=== PATIENT | female | born 1940 ===

== ENCOUNTER 2018-05-11 09:59 | Outpatient (CLI) | payer MEDICARE | END 2018-05-11 10:00 | disposition home or self-care (01) | LOC: C.VASC 09:59 ==

== ENCOUNTER 2018-05-23 15:02 | Observation (INO) | payer MEDICARE, OTHER ==
--- NOTE | 2018-05-23 15:38 | C.PDOC ---
History Of Present Illness Patient is a 78 year old female who presents to the ED after being referred from the correction for low hemoglobin, as per daughter in law. Patient has a pending fistula placement on 05/24/18 and her last hemodialysis is 05/21/18. As per family at bedside, patient is currently at baseline. Patient denies any dizziness, CP, SOB, or fever. HX PER DAUGHTER IN LAW REFERRED FROM [place] FOR LOW HGB. PENDING AV FISTULA PLACEMENT 05/24/18. LAST HD 05/21/18. PER FAMILY @ BEDSIDE, PT CURRENTLY @ BASELINE EXAM NAD HEENT NO PALLOR NARD GOOD TURGOR +R PERMACATH REMAINDER NEG Time Seen by Provider: 05/23/18 15:27 History Per: Patient, Family (daughter in law ) History/Exam Limitations: language barrier Current Symptoms Are (Timing): Still Present Recent travel outside of the [place]: No Additional History Per: Patient, Family Past Medical History Reviewed: Historical Data, Nursing Documentation, Vital Signs - Medical History PMH: No Chronic Diseases Surgical History: No Surg Hx Family History: States: No Known Family Hx Review Of Systems Constitutional: Negative for: Fever Cardiovascular: Negative for: Chest Pain Respiratory: Negative for: Shortness of Breath Neurological: Negative for: Dizziness Physical Exam - Physical Exam Appears: Non-toxic, No Acute Distress Skin: Normal Color, Warm, Dry, No Pale, Other (+R Permacath ) Head: Atraumatic, Normacephalic Eye(s): bilateral: Normal Inspection Ear(s): Bilateral: Normal Nose: Normal Oral Mucosa: Moist Throat: Normal Neck: Normal ROM, Supple Chest: Symmetrical, No Deformity Cardiovascular: Rhythm Regular, No Murmur Respiratory: Normal Breath Sounds, No Rales, No Rhonchi, No Wheezing, Other (NARD) Extremity: Normal ROM, Capillary Refill (good turgor ) Neurological/Psych: Oriented x3, Normal Speech, Normal Cognition ED Course And Treatment - Laboratory Results Result Diagrams: 05/23/18 16:26 05/23/18 16:26 - Radiology CXR: Interpreted by Me CXR Interpretation: Yes: No Acute Disease Progress Note: EKG, Bloodwork, CXR ordered and reviewed. Progress - Re-Evaluation Re-evaluation Note: 05/23/18 17:01 EXAM UNCH PRIOR D/W DR Anthony ALCANTARA WILL ADMIT 05/23/18 17:23 SURGERY RESIDENT NOTIFIED - Data Reviewed Data Reviewed: Lab, Diagnostic imaging, EKG, Old records Disposition Counseled Patient/Family Regarding: Studies Performed, Diagnosis - Disposition Disposition: HOSPITALIZED Disposition Time: 17:01 Condition: SERIOUS - POA Present On Arrival: None - Clinical Impression Clinical Impression: Anemia, ESRD (end stage renal disease) - Scribe Statement The provider has reviewed the documentation as recorded by the Dakota Akhtar All medical record entries made by the Dakota were at my direction and personally dictated by me. I have reviewed the chart and agree that the record accurately reflects my personal performance of the history, physical exam, medic al decision making, and the department course for this patient. I have also personally directed, reviewed, and agree with the discharge instructions and disposition.
--- NOTE | 2018-05-23 16:36 | RAD ---
HISTORY: MED CLEAR COMPARISON: None available. TECHNIQUE: Chest, one view. FINDINGS: Right IJ approach dialysis catheter extends to the cavoatrial junction. LUNGS: Hyperinflation may be seen in the setting of COPD. No focal consolidation. Please note that chest x-ray has limited sensitivity for the detection of pulmonary masses. PLEURA: Blunting of the costophrenic angles consistent likely related to small pleural effusions. No definite pneumothorax . CARDIOVASCULAR: Mild cardiomegaly. Atherosclerotic calcifications present. OSSEOUS STRUCTURES: Degenerative changes. VISUALIZED UPPER ABDOMEN: Unremarkable. OTHER FINDINGS: None. IMPRESSION: Hyperinflation may be seen in the setting of COPD. Probable tiny bilateral pleural effusions. Biapical pleural thickening. Mild cardiomegaly. Right IJ approach dialysis catheter.
[2018-05-23 16:40] LABS: BASO # 0.1 K/uL (0.0-0.2); EOS # 0.5 K/uL (0.0-0.7); LYMPH # 1.3 K/uL (1.0-4.3); MEAN CORPUSCULAR HEMOGLOBIN 30.4 pg (27.0-31.0); MEAN CORPUSCULAR HGB CONC 31.8 g/dL (33.0-37.0); MONO # 0.6 K/uL (0.0-0.8)
[2018-05-23 16:45] LABS: BASO % 1.5 % (0.0-2.0); EOS % 10.4 % (0.0-4.0); LYMPH % 26.3 % (20.0-40.0); MEAN CELL VOLUME 95.5 fL (81.0-99.0); MEAN PLATELET VOLUME 8.7 fL (7.2-11.7); MONO % 11.5 % (0.0-10.0); NEUT # 2.6 K/uL (1.8-7.0); NEUT % 50.3 % (50.0-75.0); NRBC % 0.4 % (0.0-2.0); RBC 2.36 Mil/uL (3.80-5.20); RED CELL DISTRIBUTION WIDTH 20.1 % (11.5-14.5); WHITE BLOOD COUNT 5.1 K/uL (4.8-10.8)
[2018-05-23 16:48] LABS: CALCIUM 9.5 mg/dl (8.6-10.4); HEMOGLOBIN 7.2 g/dL (11.0-16.0)
--- NOTE | 2018-05-23 18:55 | CP.PCM.CON ---
History of Present Illness - History of Present Illness History of Present Illness: Vascular Surgery Consult Note. Dr. Tran 78yo F with PMHx of HTN, CKD who was sent in from [place] due to anemia. Patient hx obtained from [id number] at bedside. Patient is A&O x2. Currently, patient denies any complaints. Denies any dizziness, no CP/SOB. No F/C. Patient was initially scheduled to have a AVF placed by Dr. Tran on 05/24/18, however, patient was sent in one day prior due abnormal labs. Currently on ASA and antonia vix. Hx of being on a NOAC, however, family is unsure when it was stopped. PMHx: HTN, CKD, CAD PSHx: R ORIF Family Hx: non-contributory Social Hx: Denies Tobacco use, Denies ETOH use, Denies illicit drugs. Lives in correction. NKDA Review of Systems - Review of Systems Systems not reviewed;Unavailable: Dementia, Altered Mental Status Past Patient History - Past Medical History & Family History Past Family History: Reviewed and not pertinent - Past Social History Smoking Status: Never Smoked Alcohol: None Drugs: Denies Home Situation {Lives}: Jail - CARDIAC Hx Cardiac Disorders: Yes Hx Hypertension: Yes - PULMONARY Hx Respiratory Disorders: No - NEUROLOGICAL Hx Neurological Disorder: Yes Hx Parkinson's Disease: Yes - HEENT Hx HEENT Problems: No - RENAL Hx Chronic Kidney Disease: Yes Hx Renal Failure: Yes - ENDOCRINE/METABOLIC Hx Endocrine Disorders: No - HEMATOLOGICAL/ONCOLOGICAL Hx Blood Disorders: Yes Hx Anemia: Yes - INTEGUMENTARY Hx Dermatological Problems: No - MUSCULOSKELETAL/RHEUMATOLOGICAL Hx Musculoskeletal Disorders: No - GASTROINTESTINAL Hx Gastrointestinal Disorders: Yes Hx Gastroesophageal Reflux: Yes - GENITOURINARY/GYNECOLOGICAL Hx Genitourinary Disorders: Yes Other/Comment: Incontinent - PSYCHIATRIC Hx Substance Use: No - SURGICAL HISTORY Hx Surgeries: No Hx Coronary Stent: Yes Meds Allergies/Adverse Reactions: Allergies Allergy/AdvReac Type Severity Reaction Status Date / Time No Known Allergies Allergy Verified 05/23/18 15:55 Physical Exam - Constitutional Appears: Non-toxic, No Acute Distress - Head Exam Head Exam: ATRAUMATIC, NORMAL INSPECTION, NORMOCEPHALIC - Eye Exam Eye Exam: EOMI, Normal appearance. absent: Scleral icterus - ENT Exam ENT Exam: Mucous Membranes Moist - Respiratory Exam Respiratory Exam: NORMAL BREATHING PATTERN. absent: Accessory Muscle Use, Respiratory Distress - Cardiovascular Exam Cardiovascular Exam: RRR. absent: JVD - GI/Abdominal Exam GI & Abdominal Exam: Soft. absent: Distended, Guarding, Rebound, Rigid, Tenderness - Extremities Exam Extremities exam: Positive for: normal inspection. Negative for: calf tenderness, pedal edema - Back Exam Back exam: NORMAL INSPECTION - Skin Skin Exam: Dry, Intact, Normal Color, Warm Results - Vital Signs Recent Vital Signs: Last Vital Signs Temp 98.1 F 05/23/18 15:41 Pulse 88 05/23/18 15:41 Resp 16 05/23/18 15:41 BP 154/54 H 05/23/18 15:41 Pulse Ox 98 05/23/18 15:41 - Labs Result Diagrams: 05/23/18 16:26 05/23/18 16:26 Labs: Laboratory Results - last 24 hr 05/23/18 05/23/18 05/23/18 16:26 16:26 16:26 WBC 5.1 RBC 2.36 L Hgb 7.2 L Hct 22.5 L MCV 95.5 MCH 30.4 MCHC 31.8 L RDW 20.1 H Plt Count 118 L MPV 8.7 Neut % (Auto) 50.3 Lymph % (Auto) 26.3 [place] % (Auto) 11.5 H Eos % (Auto) 10.4 H Baso % (Auto) 1.5 Neut # (Auto) 2.6 Lymph # (Auto) 1.3 [place] # (Auto) 0.6 Eos # (Auto) 0.5 Baso # (Auto) 0.1 Sodium 137 Potassium 4.5 Chloride 99 Carbon Dioxide 28 Anion Gap 14 BUN 19 H Creatinine 3.5 H Est GFR ( Amer) 15 Est GFR (Non-Af Amer) 13 Random Glucose 89 Calcium 9.5 Blood Type O POSITIVE Antibody Screen Negative Assessment & Plan - Assessment and Plan (Free Text) Assessment: 78yo F with CKD, here due anemia on labs. Vascular surgery consulted for AVF creation planning Plan: - Anemia noted. Transfuse prn - Will need cardiology risk stratification prior to proceeding to OR. - Will tentatively plan for OR tomorrow, 05/24/18 if patient is medically optimized - NPO past mn - f/u AM labs - Medical management as per Primary team Further recs as per Dr. Chelsea Connelly PGY2 surgery
[2018-05-24 05:17] LABS: BASO # 0.1 K/uL (0.0-0.2); BASO % 1.8 % (0.0-2.0); EOS # 0.6 K/uL (0.0-0.7); EOS % 9.2 % (0.0-4.0); HEMOGLOBIN 9.5 g/dL (11.0-16.0); LYMPH # 1.9 K/uL (1.0-4.3); MEAN CELL VOLUME 92.8 fL (81.0-99.0); MEAN CORPUSCULAR HGB CONC 33.4 g/dL (33.0-37.0); MEAN PLATELET VOLUME 7.7 fL (7.2-11.7); MONO # 0.7 K/uL (0.0-0.8); NEUT # 2.9 K/uL (1.8-7.0); NRBC % 0.3 % (0.0-2.0); RBC 3.06 Mil/uL (3.80-5.20); RED CELL DISTRIBUTION WIDTH 17.2 % (11.5-14.5); WHITE BLOOD COUNT 6.2 K/uL (4.8-10.8)
[2018-05-24 05:30] LABS: ALB/GLOB RATIO 0.9 (1.0-2.1); ALBUMIN 3.4 g/dL (3.5-5.0); CALCIUM 9.5 mg/dl (8.6-10.4)
[2018-05-24 06:53] LABS: INR 1.1; PROTHROMBIN TIME 11.6 SECONDS (9.7-12.2)
--- NOTE | 2018-05-24 07:47 | CP.PCM.PN ---
Subjective - Date & Time of Evaluation Date of Evaluation: 05/24/18 Time of Evaluation: 08:00 - Subjective Subjective: Surgery progress note for Dr. Tran Patient seen and examined at bedside. No overnight events reported. Patient states she feels fine, just some minor back pain. Patient denies chest pain, SOB, nausea, vomiting, abdominal pain. Objective - Vital Signs/Intake and Output Vital Signs (last 24 hours): Temp Pulse Resp BP Pulse Ox 97.6 F 91 H 16 159/64 H 98 05/24/18 06:27 05/24/18 07:26 05/24/18 07:26 05/24/18 07:26 05/24/18 07:26 - Labs Labs: 05/24/18 05:14 05/24/18 05:14 PT 11.6 SECONDS (9.7-12.2) 05/24/18 06:50 INR 1.1 05/24/18 06:50 APTT 31 SECONDS (21-34) 05/24/18 05:14 - Constitutional Appears: Non-toxic, No Acute Distress - Head Exam Head Exam: NORMAL INSPECTION - Eye Exam Eye Exam: Normal appearance - ENT Exam ENT Exam: Mucous Membranes Moist - Respiratory Exam Respiratory Exam: NORMAL BREATHING PATTERN - Cardiovascular Exam Additional comments: RR - GI/Abdominal Exam GI & Abdominal Exam: Soft - Neurological Exam Neurological Exam: Alert, Awake - Psychiatric Exam Psychiatric exam: Normal Affect, Normal Mood - Skin Skin Exam: Dry, Intact, Normal Color, Warm Assessment and Plan - Assessment and Plan (Free Text) Assessment: 78 F scheduled for AVF Plan: - hgb 9.5 s/p 1 PRBC, transfuse PRN - Will need cardiology risk stratification prior to proceeding to OR. - Will tentatively plan for OR tomorrow, 05/25/18 if patient is medically optimized - NPO after MN - Medical management as per Primary team Further recs as per Dr. Chelsea Vick, PGY1
[2018-05-24] MEDS: Multivitamin Vitamin B Complex (Nephro-Vite) Tab PO SCH (12:33)
--- NOTE | 2018-05-24 12:43 | CP.PCM.PN ---
Subjective - Date & Time of Evaluation Date of Evaluation: 05/24/18 Time of Evaluation: 12:41 - Subjective Subjective: PT AWAKE. NOT IN DISTRESS. HB 9.5 CRF Objective - Vital Signs/Intake and Output Vital Signs (last 24 hours): Temp Pulse Resp BP Pulse Ox 97.7 F 99 H 18 157/65 H 97 05/24/18 10:56 05/24/18 12:33 05/24/18 10:56 05/24/18 12:33 05/24/18 10:56 - Medications Medications: Current Medications Amlodipine Besylate (Norvasc) 10 mg PO DAILY [facility] Last Admin: 05/24/18 12:33 Dose: 10 mg Famotidine (Pepcid) 20 mg PO DAILY [facility] Ferrous Sulfate (Feosol) 325 mg PO DAILY [facility] Last Admin: 05/24/18 12:33 Dose: 325 mg Hydralazine HCl (Apresoline) 50 mg PO Q8 [facility] Metoprolol Tartrate (Lopressor) 50 mg PO BID [facility] Mirtazapine (Remeron) 15 mg PO HS [facility] Pantoprazole Sodium (Protonix Ec Tab) 40 mg PO DAILY [facility] Rosuvastatin Calcium (Crestor) 40 mg PO HS [facility] Vitamin B Complex/Vit C/Folic Acid (Nephro-Waldo) 1 tab PO DAILY [facility] Vitamin B Complex/Vit C/Folic Acid (Nephro-Waldo) 1 tab PO DAILY [facility] Last Admin: 05/24/18 12:33 Dose: 1 tab - Labs Labs: 05/24/18 05:14 05/24/18 05:14 PT 11.6 SECONDS (9.7-12.2) 05/24/18 06:50 INR 1.1 05/24/18 06:50 APTT 31 SECONDS (21-34) 05/24/18 05:14 - Constitutional Appears: No Acute Distress, Chronically Ill - Eye Exam Eye Exam: Normal appearance, PERRL - ENT Exam ENT Exam: Mucous Membranes Moist - Respiratory Exam Respiratory Exam: Clear to Ausculation Bilateral, NORMAL BREATHING PATTERN - Cardiovascular Exam Cardiovascular Exam: REGULAR RHYTHM, +S1, +S2 - GI/Abdominal Exam GI & Abdominal Exam: Soft, Normal Bowel Sounds - Extremities Exam Extremities Exam: Full ROM, Normal Capillary Refill, Normal Inspection. absent: Joint Swelling, Pedal Edema - Back Exam Back Exam: NORMAL INSPECTION - Neurological Exam Neurological Exam: Alert, Awake, CN II-XII Intact, Normal Gait, Oriented x3 Assessment and Plan - Assessment and Plan (Free Text) Assessment: MEDICALLY STABLE WIRH ANEMIA CRF. Plan: CARDIAC CLEARANCE AND FOR AVS.
--- NOTE | 2018-05-24 16:34 | CP.PCM.CON ---
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 Patient hx obtained from [id number] at bedside. Patient is A&O x2. Currently, patient denies any complaints. Denies any dizziness, no CP/SOB. No F/C. Patient was initially scheduled to have a AVF placed by Dr. Tran on 05/24/18, however, patient was sent in one day prior due abnormal labs. Currently on ASA and plavix. Hx of being on a NOAC, however, family is unsure when it was stopped. denies any shortness of breath chest pain dizziness headache fevers chills nausea vomiting diarrhea at this time. conversant, asking for O2 nasal cannula. Last HD wednesday, tts schedule.Pt w/ hemoglobin in the 6-7 range during hd labs, transfusion was advised. PMHx: HTN, esrd, CAD PSHx: R ORIF Family Hx: non-contributory Social Hx: Denies Tobacco use, Denies ETOH use, Denies illicit drugs. Lives in alf. NKDA Review of Systems - Review of Systems All systems: reviewed and no additional remarkable complaints except (as per HPI ) Past Patient History - Past Medical History & Family History Past Family History: Reviewed and not pertinent - Past Social History Smoking Status: Never Smoked Alcohol: None Drugs: Denies Home Situation {Lives}: [facility]sp - CARDIAC Hx Cardiac Disorders: Yes Hx Hypertension: Yes - PULMONARY Hx Respiratory Disorders: No - NEUROLOGICAL Hx Neurological Disorder: Yes Hx Parkinson's Disease: Yes - HEENT Hx HEENT Problems: No - RENAL Hx Chronic Kidney Disease: Yes Hx Renal Failure: Yes - ENDOCRINE/METABOLIC Hx Endocrine Disorders: No - HEMATOLOGICAL/ONCOLOGICAL Hx Blood Disorders: Yes Hx Anemia: Yes - INTEGUMENTARY Hx Dermatological Problems: No - MUSCULOSKELETAL/RHEUMATOLOGICAL Hx Musculoskeletal Disorders: No - GASTROINTESTINAL Hx Gastrointestinal Disorders: Yes Hx Gastroesophageal Reflux: Yes - GENITOURINARY/GYNECOLOGICAL Hx Genitourinary Disorders: Yes Other/Comment: Incontinent - PSYCHIATRIC Hx Substance Use: No - SURGICAL HISTORY Hx Surgeries: No Hx Coronary Stent: Yes Meds Allergies/Adverse Reactions: Allergies Allergy/AdvReac Type Severity Reaction Status Date / Time No Known Allergies Allergy Verified 05/23/18 15:55 - Medications Medications: Current Medications Amlodipine Besylate (Norvasc) 10 mg PO DAILY [facility] Last Admin: 05/24/18 12:33 Dose: 10 mg Famotidine (Pepcid) 20 mg PO DAILY [facility] Ferrous Sulfate (Feosol) 325 mg PO DAILY [facility] Last Admin: 05/24/18 12:33 Dose: 325 mg Hydralazine HCl (Apresoline) 50 mg PO Q8 [facility] Last Admin: 05/24/18 14:26 Dose: Not Given Metoprolol Tartrate (Lopressor) 50 mg PO BID [facility] Mirtazapine (Remeron) 15 mg PO HS [facility] Pantoprazole Sodium (Protonix Ec Tab) 40 mg PO DAILY [facility] Rosuvastatin Calcium (Crestor) 40 mg PO HS [facility] Vitamin B Complex/Vit C/Folic Acid (Nephro-Waldo) 1 tab PO DAILY [facility] Vitamin B Complex/Vit C/Folic Acid (Nephro-Waldo) 1 tab PO DAILY [facility] Last Admin: 05/24/18 12:33 Dose: 1 tab Physical Exam - Constitutional Appears: No Acute Distress, Cachectic, Chronically Ill - Head Exam Head Exam: NORMAL INSPECTION, NORMOCEPHALIC - Eye Exam Eye Exam: Normal appearance, PERRL - ENT Exam ENT Exam: Mucous Membranes Moist, Normal Exam - Neck Exam Neck exam: Positive for: Full Rom, Normal Inspection - Respiratory Exam Respiratory Exam: Clear to Auscultation Bilateral, NORMAL BREATHING PATTERN - Cardiovascular Exam Cardiovascular Exam: REGULAR RHYTHM, RRR - GI/Abdominal Exam GI & Abdominal Exam: Normal Bowel Sounds, Soft - Extremities Exam Extremities exam: Positive for: normal inspection - Neurological Exam Neurological exam: Alert, Oriented x3 - Psychiatric Exam Psychiatric exam: Normal Affect, Normal Mood - Skin Skin Exam: Dry, Intact Results - Vital Signs Recent Vital Signs: Last Vital Signs Temp 97.7 F 05/24/18 10:56 Pulse 100 H 05/24/18 14:26 Resp 18 05/24/18 10:56 BP 156/71 H 05/24/18 14:26 Pulse Ox 97 05/24/18 15:30 - Labs Result Diagrams: 05/24/18 05:14 05/24/18 05:14 Labs: Laboratory Results - last 24 hr 05/23/18 05/23/18 05/23/18 16:26 16:26 16:26 WBC 5.1 RBC 2.36 L Hgb 7.2 L Hct 22.5 L MCV 95.5 MCH 30.4 MCHC 31.8 L RDW 20.1 H Plt Count 118 L MPV 8.7 Neut % (Auto) 50.3 Lymph % (Auto) 26.3 [place] % (Auto) 11.5 H Eos % (Auto) 10.4 H Baso % (Auto) 1.5 Neut # (Auto) 2.6 Lymph # (Auto) 1.3 [place] # (Auto) 0.6 Eos # (Auto) 0.5 Baso # (Auto) 0.1 Differential Comment PT INR APTT Sodium 137 Potassium 4.5 Chloride 99 Carbon Dioxide 28 Anion Gap 14 BUN 19 H Creatinine 3.5 H Est GFR ( Amer) 15 Est GFR (Non-Af Amer) 13 Random Glucose 89 Calcium 9.5 Phosphorus Magnesium Total Bilirubin AST ALT Alkaline Phosphatase Total Protein Albumin Globulin Albumin/Globulin Ratio Blood Type O POSITIVE Antibody Screen Negative 05/24/18 05/24/18 05/24/18 05:14 05:14 05:14 WBC 6.2 RBC 3.06 L Hgb 9.5 L D Hct 28.4 L MCV 92.8 D MCH 31.0 MCHC 33.4 RDW 17.2 H Plt Count 89 L D MPV 7.7 Neut % (Auto) 46.0 L Lymph % (Auto) 31.0 [place] % (Auto) 12.0 H Eos % (Auto) 9.2 H Baso % (Auto) 1.8 Neut # (Auto) 2.9 Lymph # (Auto) 1.9 [place] # (Auto) 0.7 Eos # (Auto) 0.6 Baso # (Auto) 0.1 Differential Comment PT INR APTT 31 Sodium 136 Potassium 3.8 Chloride 101 Carbon Dioxide 27 Anion Gap 12 BUN 20 H Creatinine 4.2 H Est GFR ( Amer) 12 Est GFR (Non-Af Amer) 10 Random Glucose 79 Calcium 9.5 Phosphorus 2.8 Magnesium 2.2 Total Bilirubin 0.5 AST 38 H ALT 23 Alkaline Phosphatase 107 Total Protein 7.5 Albumin 3.4 L Globulin 4.0 H Albumin/Globulin Ratio 0.9 L Blood Type Antibody Screen 05/24/18 06:50 WBC RBC Hgb Hct MCV MCH MCHC RDW Plt Count MPV Neut % (Auto) Lymph % (Auto) [place] % (Auto) Eos % (Auto) Baso % (Auto) Neut # (Auto) Lymph # (Auto) [place] # (Auto) Eos # (Auto) Baso # (Auto) Differential Comment PT 11.6 INR 1.1 APTT Sodium Potassium Chloride Carbon Dioxide Anion Gap BUN Creatinine Est GFR ( Amer) Est GFR (Non-Af Amer) Random Glucose Calcium Phosphorus Magnesium Total Bilirubin AST ALT Alkaline Phosphatase Total Protein Albumin Globulin Albumin/Globulin Ratio Blood Type Antibody Screen Assessment & Plan (1) Anemia Status: Acute (2) ESRD (end stage renal disease) Status: Acute - Assessment and Plan (Free Text) Assessment: s/p blood transfusion hd today and tts vascular surgery for avf raul w/ hd
--- NOTE | 2018-05-24 18:52 | CP.PCM.CON ---
History of Present Illness - History of Present Illness History of Present Illness: History Of Present Illness Patient is a 78 year old female who presents to the ED after being referred from the longterm for low hemoglobin, as per daughter in law. Patient has a pending fistula placement on 05/24/18 and her last hemodialysis is 05/21/18. As per family at bedside, patient is currently at baseline. Patient denies any dizziness, CP, SOB, or fever. At the time of exam having dialysis. Denies any new complaints and she knows I am her Doctor. Past Patient History - Past Medical History & Family History Past Family History: Reviewed and not pertinent - Past Social History Smoking Status: Never Smoked Alcohol: None Drugs: Denies Home Situation {Lives}: Senior Living - CARDIAC Hx Cardiac Disorders: Yes Hx Hypertension: Yes - PULMONARY Hx Respiratory Disorders: No - NEUROLOGICAL Hx Neurological Disorder: Yes Hx Parkinson's Disease: Yes - HEENT Hx HEENT Problems: No - RENAL Hx Chronic Kidney Disease: Yes Hx Renal Failure: Yes - ENDOCRINE/METABOLIC Hx Endocrine Disorders: No - HEMATOLOGICAL/ONCOLOGICAL Hx Blood Disorders: Yes Hx Anemia: Yes - INTEGUMENTARY Hx Dermatological Problems: No - MUSCULOSKELETAL/RHEUMATOLOGICAL Hx Musculoskeletal Disorders: No - GASTROINTESTINAL Hx Gastrointestinal Disorders: Yes Hx Gastroesophageal Reflux: Yes - GENITOURINARY/GYNECOLOGICAL Hx Genitourinary Disorders: Yes Other/Comment: Incontinent - PSYCHIATRIC Hx Substance Use: No - SURGICAL HISTORY Hx Surgeries: No Hx Coronary Stent: Yes Meds Allergies/Adverse Reactions: Allergies Allergy/AdvReac Type Severity Reaction Status Date / Time No Known Allergies Allergy Verified 05/23/18 15:55 - Medications Medications: Current Medications Amlodipine Besylate (Norvasc) 10 mg PO DAILY [facility] Last Admin: 05/24/18 12:33 Dose: 10 mg Famotidine (Pepcid) 20 mg PO DAILY [facility] Ferrous Sulfate (Feosol) 325 mg PO DAILY [facility] Last Admin: 05/24/18 12:33 Dose: 325 mg Hydralazine HCl (Apresoline) 50 mg PO Q8 [facility] Last Admin: 05/24/18 14:26 Dose: Not Given Metoprolol Tartrate (Lopressor) 50 mg PO BID [facility] Mirtazapine (Remeron) 15 mg PO HS [facility] Pantoprazole Sodium (Protonix Ec Tab) 40 mg PO DAILY [facility] Rosuvastatin Calcium (Crestor) 40 mg PO HS [facility] Vitamin B Complex/Vit C/Folic Acid (Nephro-Waldo) 1 tab PO DAILY [facility] Vitamin B Complex/Vit C/Folic Acid (Nephro-Waldo) 1 tab PO DAILY [facility] Last Admin: 05/24/18 12:33 Dose: 1 tab Physical Exam - Head Exam Head Exam: NORMOCEPHALIC - Neck Exam Neck exam: Positive for: Normal Inspection - Respiratory Exam Respiratory Exam: NORMAL BREATHING PATTERN - Cardiovascular Exam Cardiovascular Exam: REGULAR RHYTHM - Extremities Exam Extremities exam: Positive for: normal inspection - Neurological Exam Neurological exam: Alert, Oriented x3 Results - Vital Signs Recent Vital Signs: Last Vital Signs Temp 97.5 F L 05/24/18 16:05 Pulse 99 H 05/24/18 17:31 Resp 16 05/24/18 17:31 BP 132/65 05/24/18 17:50 Pulse Ox 16 L 05/24/18 16:05 - Labs Result Diagrams: 05/24/18 05:14 05/24/18 05:14 Labs: Laboratory Results - last 24 hr 05/23/18 05/23/18 05/24/18 16:26 16:26 05:14 WBC 5.1 6.2 RBC 2.36 L 3.06 L Hgb 7.2 L 9.5 L D Hct 22.5 L 28.4 L MCV 95.5 92.8 D MCH 30.4 31.0 MCHC 31.8 L 33.4 RDW 20.1 H 17.2 H Plt Count 118 L 89 L D MPV 8.7 7.7 Neut % (Auto) 50.3 46.0 L Lymph % (Auto) 26.3 31.0 [place] % (Auto) 11.5 H 12.0 H Eos % (Auto) 10.4 H 9.2 H Baso % (Auto) 1.5 1.8 Neut # (Auto) 2.6 2.9 Lymph # (Auto) 1.3 1.9 [place] # (Auto) 0.6 0.7 Eos # (Auto) 0.5 0.6 Baso # (Auto) 0.1 0.1 Differential Comment PT INR APTT Sodium Potassium Chloride Carbon Dioxide Anion Gap BUN Creatinine Est GFR ( Amer) Est GFR (Non-Af Amer) Random Glucose Calcium Phosphorus Magnesium Total Bilirubin AST ALT Alkaline Phosphatase Total Protein Albumin Globulin Albumin/Globulin Ratio Blood Type O POSITIVE Antibody Screen Negative 05/24/18 05/24/18 05/24/18 05:14 05:14 06:50 WBC RBC Hgb Hct MCV MCH MCHC RDW Plt Count MPV Neut % (Auto) Lymph % (Auto) [place] % (Auto) Eos % (Auto) Baso % (Auto) Neut # (Auto) Lymph # (Auto) [place] # (Auto) Eos # (Auto) Baso # (Auto) Differential Comment PT 11.6 INR 1.1 APTT 31 Sodium 136 Potassium 3.8 Chloride 101 Carbon Dioxide 27 Anion Gap 12 BUN 20 H Creatinine 4.2 H Est GFR ( Amer) 12 Est GFR (Non-Af Amer) 10 Random Glucose 79 Calcium 9.5 Phosphorus 2.8 Magnesium 2.2 Total Bilirubin 0.5 AST 38 H ALT 23 Alkaline Phosphatase 107 Total Protein 7.5 Albumin 3.4 L Globulin 4.0 H Albumin/Globulin Ratio 0.9 L Blood Type Antibody Screen Assessment & Plan (1) CAD (coronary artery disease) Assessment and Plan: CAD is stable. No new episodes. May proceed with planned A-V fistula. Resume DAPT LIZETTE after procedure. Status: Acute (2) Anemia Status: Acute (3) ESRD (end stage renal disease) Assessment and Plan: Most likely secondary to ESRD, Keep H&H.12/17. Status: Acute
--- NOTE | 2018-05-24 20:29 | CARD ---
APPROVED REPORT Date of service: 05/23/2018 EKG Measurement Heart [id number] <Conclusion> Normal sinus rhythm Marked counterclockiwise rotation. Abnormal ECG
--- NOTE | 2018-05-24 21:06 | HP ---
HISTORY OF PRESENT ILLNESS: This is a 78-year-old [place] female, who was transferred from retirement because of anemia, hemoglobin of 7.2. The patient is supposed to go for AV shunt by Dr. Tran on 05/24/2018. No history of fever, chills. No other complaints offered. The patient is awake and oriented x2. No history of chest pain or shortness of breath. REVIEW OF SYSTEMS: CARDIOVASCULAR SYSTEM: Negative for chest pain. RESPIRATORY SYSTEM: Negative for shortness of breath and cough. GASTROINTESTINAL SYSTEM: Negative for nausea, vomiting, or abdominal pain. CENTRAL NERVOUS SYSTEM: No focal neurological complaints offered. ALLERGIES: NO KNOWN ALLERGY. PAST HISTORY: Hypertension, renal failure, coronary artery disease, arthritis and hyperthyroidism. FAMILY HISTORY: No known inherited disease. SOCIAL HISTORY: Nonsmoker, nonalcoholic. No IVDA. PHYSICAL EXAMINATION: GENERAL: This is a 78-year-old [place] female, awake and comfortable. VITAL SIGNS: Temperature 98.1, pulse 88, respirations 16, blood pressure 154/54 mmHg, and pulse ox is 98% at room air. HEENT: Normal. NECK: JVP flat. Carotid, no bruits. LUNGS: No rales. No wheezing. HEART: S1 and S2 are normal. No gallop. No murmur. ABDOMEN: Soft, nontender. No organomegaly. CENTRAL NERVOUS SYSTEM: No focal neurological deficits. No edema of the legs. LABORATORY DATA: On admission, lab work shows hemoglobin 7.2, and platelets 118,000. White cell count is 5.1. Patient's BUN is 19, creatinine is 3.5. The patient is undergoing dialysis presently. IMPRESSION: Severe anemia secondary to chronic renal failure, coronary artery disease, hypertension, arteriosclerotic heart disease. PLAN: The patient will be admitted to the floor. We will give 2 units of blood transfusion and consult Dr. Tran. Other workup as needed. Marisol Brooke MD
[2018-05-25 07:37] LABS: BASO # 0.1 K/uL (0.0-0.2); BASO % 1.7 % (0.0-2.0); EOS # 0.6 K/uL (0.0-0.7); EOS % 9.7 % (0.0-4.0); HEMOGLOBIN 9.3 g/dL (11.0-16.0); LYMPH # 1.6 K/uL (1.0-4.3); LYMPH % 26.6 % (20.0-40.0); MEAN CELL VOLUME 92.6 fL (81.0-99.0); MEAN CORPUSCULAR HEMOGLOBIN 31.2 pg (27.0-31.0); MEAN CORPUSCULAR HGB CONC 33.7 g/dL (33.0-37.0); MEAN PLATELET VOLUME 9.4 fL (7.2-11.7); MONO # 0.7 K/uL (0.0-0.8); NEUT # 2.9 K/uL (1.8-7.0); NRBC % 0.2 % (0.0-2.0); RBC 2.99 Mil/uL (3.80-5.20); RED CELL DISTRIBUTION WIDTH 17.3 % (11.5-14.5); WHITE BLOOD COUNT 5.8 K/uL (4.8-10.8)
[2018-05-25 07:42] LABS: INR 1.1
[2018-05-25 07:50] LABS: ALB/GLOB RATIO 0.8 (1.0-2.1); ALBUMIN 3.3 g/dL (3.5-5.0); CALCIUM 8.9 mg/dl (8.6-10.4)
--- NOTE | 2018-05-25 09:03 | CP.PCM.PN ---
Subjective - Date & Time of Evaluation Date of Evaluation: 05/25/18 Time of Evaluation: 09:00 - Subjective Subjective: for OR today for TRINY tolerating HD no distress no acute events cannot obtain ROS due to chronic dementia Objective - Vital Signs/Intake and Output Vital Signs (last 24 hours): Temp Pulse Resp BP Pulse Ox 98.0 F 88 20 147/69 95 05/25/18 00:00 05/25/18 00:00 05/25/18 00:00 05/25/18 00:00 05/25/18 00:00 - Medications Medications: Current Medications Amlodipine Besylate (Norvasc) 10 mg PO DAILY [facility] Last Admin: 05/24/18 12:33 Dose: 10 mg Famotidine (Pepcid) 20 mg PO DAILY [facility] Ferrous Sulfate (Feosol) 325 mg PO DAILY [facility] Last Admin: 05/24/18 12:33 Dose: 325 mg Hydralazine HCl (Apresoline) 50 mg PO Q8 [facility] Last Admin: 05/25/18 07:00 Dose: 50 mg Metoprolol Tartrate (Lopressor) 50 mg PO BID [facility] Last Admin: 05/24/18 21:06 Dose: 50 mg Mirtazapine (Remeron) 15 mg PO HS [facility] Last Admin: 05/24/18 21:06 Dose: 15 mg Pantoprazole Sodium (Protonix Ec Tab) 40 mg PO DAILY [facility] Rosuvastatin Calcium (Crestor) 40 mg PO HS [facility] Vitamin B Complex/Vit C/Folic Acid (Nephro-Waldo) 1 tab PO DAILY [facility] Vitamin B Complex/Vit C/Folic Acid (Nephro-Waldo) 1 tab PO DAILY [facility] Last Admin: 05/24/18 12:33 Dose: 1 tab - Labs Labs: 05/25/18 07:28 05/25/18 07:28 PT 12.0 SECONDS (9.7-12.2) 05/25/18 07:28 INR 1.1 05/25/18 07:28 APTT 33 SECONDS (21-34) 05/25/18 07:28 - Constitutional Appears: Confused, Chronically Ill - Head Exam Head Exam: ATRAUMATIC, NORMAL INSPECTION - Eye Exam Eye Exam: EOMI - ENT Exam ENT Exam: Mucous Membranes Moist - Neck Exam Neck Exam: Full ROM. absent: Lymphadenopathy - Respiratory Exam Respiratory Exam: Decreased Breath Sounds. absent: Rhonchi - Cardiovascular Exam Cardiovascular Exam: REGULAR RHYTHM. absent: Rubs - GI/Abdominal Exam GI & Abdominal Exam: Soft. absent: Tenderness - Extremities Exam Extremities Exam: absent: Pedal Edema - Back Exam Back Exam: absent: CVA tenderness (L), CVA tenderness (R) - Neurological Exam Neurological Exam: Awake - Psychiatric Exam Psychiatric exam: absent: Agitated Assessment and Plan - Assessment and Plan (Free Text) Assessment: ESRD, for TRINY NHR CAD, asx Anemia of chronic disease, epogen on HD, stable Hd in am
[2018-05-25] MEDS: Multivitamin Vitamin B Complex (Nephro-Vite) Tab PO SCH ×2 (11:13)
[2018-05-25] MEDS: Pantoprazole 40 mg EC Tab PO SCH (11:20)
[2018-05-25] MEDS ORDERED: ceFAZolin 1 gm in NS 1 GM/100 ML BAG IVPB ONE (11:37)
[2018-05-25] MEDS ORDERED: HEPARIN-NS 5,000 UNITS/500 ML 5,000 UNIT/500 ML BAG IV ONE (11:38)
--- NOTE | 2018-05-25 12:11 | CP.PCM.PN ---
Subjective - Date & Time of Evaluation Date of Evaluation: 05/25/18 Time of Evaluation: 12:09 - Subjective Subjective: PT MEDICALLY STABLE. FOR AVS TODAY. Objective - Vital Signs/Intake and Output Vital Signs (last 24 hours): Temp Pulse Resp BP Pulse Ox 98 F 83 17 146/63 95 05/25/18 11:17 05/25/18 11:17 05/25/18 11:17 05/25/18 11:17 05/25/18 11:17 - Medications Medications: Current Medications Amlodipine Besylate (Norvasc) 10 mg PO DAILY [facility] Last Admin: 05/25/18 11:13 Dose: Not Given Famotidine (Pepcid) 20 mg PO DAILY [facility] Last Admin: 05/25/18 11:20 Dose: Not Given Ferrous Sulfate (Feosol) 325 mg PO DAILY [facility] Last Admin: 05/25/18 11:13 Dose: Not Given Hydralazine HCl (Apresoline) 50 mg PO Q8 [facility] Last Admin: 05/25/18 07:00 Dose: 50 mg Metoprolol Tartrate (Lopressor) 50 mg PO BID [facility] Last Admin: 05/25/18 11:16 Dose: 50 mg Mirtazapine (Remeron) 15 mg PO HS [facility] Last Admin: 05/24/18 21:06 Dose: 15 mg Pantoprazole Sodium (Protonix Ec Tab) 40 mg PO DAILY [facility] Last Admin: 05/25/18 11:20 Dose: Not Given Rosuvastatin Calcium (Crestor) 40 mg PO [facility] Vitamin B Complex/Vit C/Folic Acid (Nephro-Waldo) 1 tab PO DAILY [facility] Last Admin: 05/25/18 11:13 Dose: Not Given Vitamin B Complex/Vit C/Folic Acid (Nephro-Waldo) 1 tab PO DAILY [facility] Last Admin: 05/25/18 11:13 Dose: Not Given - Labs Labs: 05/25/18 07:28 05/25/18 07:28 PT 12.0 SECONDS (9.7-12.2) 05/25/18 07:28 INR 1.1 05/25/18 07:28 APTT 33 SECONDS (21-34) 05/25/18 07:28 - Constitutional Appears: Chronically Ill - Eye Exam Eye Exam: Normal appearance, PERRL - ENT Exam ENT Exam: Mucous Membranes Moist - Respiratory Exam Respiratory Exam: Clear to Ausculation Bilateral, NORMAL BREATHING PATTERN - Cardiovascular Exam Cardiovascular Exam: REGULAR RHYTHM, +S1, +S2 - GI/Abdominal Exam GI & Abdominal Exam: Soft, Normal Bowel Sounds - Extremities Exam Extremities Exam: Full ROM, Normal Capillary Refill, Normal Inspection. absent: Joint Swelling, Pedal Edema - Back Exam Back Exam: NORMAL INSPECTION - Neurological Exam Neurological Exam: Alert, Awake, CN II-XII Intact, Normal Gait, Oriented x3 Assessment and Plan - Assessment and Plan (Free Text) Assessment: CRF. Plan: FOR OR TODAY.
[2018-05-25] MEDS ORDERED: Propofol 10 mg/ml Inj (20 ML) ONE (12:27)
[2018-05-25] MEDS ORDERED: Lidocaine Hydrochloride 5 ML INJ ONE (12:27)
[2018-05-25] MEDS ORDERED: Labetalol 5mg/ml (4ml) ONE (12:46)
[2018-05-25] MEDS ORDERED: ePHEDrine 50 mg/ml Inj ONE (12:49)
[2018-05-25] MEDS ORDERED: Phenylephrine 10 mg/ml Inj ONE (12:51)
[2018-05-25] MEDS ORDERED: Oxycodone/Acetaminophen 5/325 mg Tab PO PRN (14:21)
--- NOTE | 2018-05-25 14:23 | PCM.SURG1 ---
Surgeon's Initial Post Op Note - Surgeon's Notes Surgeon: Dr. Tran Furnace Combination Analyst: Maricel PGY2 Type of Anesthesia: General LMA Anesthesia Administered By: Dr. Blanco Pre-Operative Diagnosis: End Stage Renal Disease Operative Findings: See operative report Post-Operative Diagnosis: Same Operation Performed: Left Brachiobasilic Arteriovenous Fistula Creation Specimen/Specimens Removed: None Estimated Blood Loss: EBL {In ML}: 15 Blood Products Given: N/A Drains Used: No Drains Post-Op Condition: Good Date of Surgery/Procedure: 05/25/18 Time of Surgery/Procedure: 14:22
--- NOTE | 2018-05-25 14:26 | CP.PCM.PCO ---
Assessment & Plan - Assessment and Plan (Free Text) Assessment: 78yo F with ESRD on HD. S/p Left brachiobasilic Arteriovenous Fistula creation. POD 0 Plan: - Pain management - Cleared for discharge at the discretion of the primary care team - Follow up with Dr. Tran in office in 10 days. Call for appointment - Continue HD via Permacath for now Further recs as per Dr. Chelsea Connelly PGY2 surgery
[2018-05-25 14:34] VITALS: O2SAT 100
--- NOTE | 2018-05-26 01:10 | OP ---
PROCEDURE DATE: 05/25/2018 PREOPERATIVE DIAGNOSIS: Renal failure. POSTOPERATIVE DIAGNOSIS: Renal failure. PROCEDURE CARRIED OUT: Brachiobasilic fistula, left elbow. SURGEON: Quoc Tran Jr., MD IT SUPPORT TECHNICIAN: Vishnu Connelly DO ANESTHESIOLOGIST: Dr. Blanco INDICATIONS: The patient is a 78-year-old woman with renal insufficiency, presently dialyzes with the use of a catheter. OPERATIVE FINDINGS: There were no surface veins available. . After evaluation of her basilic vein in the upper arm, we created a basilic vein fistula between the side of the brachial artery at the elbow and the adjacent to the basilic vein. At the end of the procedure, we had a good flow to the fistula, and we had a palpable pulse at the wrist. DESCRIPTION OF PROCEDURE: The patient was given general anesthesia and intravenous antibiotics. The veins were marked with ultrasound. After marked, they were dissected free and mobilized. The end-to-side anastomosis was carried out using heparin anticoagulation, loupe magnification and plastic loupe vessel control. The anastomosis was carried out in a spatulated fashion. Heparin was not reversed. The wound was closed with layered closure and nylon sutures on the skin. Blood loss was less than 20 mL. Operation carried out is brachiobasilic fistula, left elbow. Most likely, this will require mobilization in a few weeks. Quoc Tran Jr., MD cc: MD Charlie Mackey MD
[2018-05-26] MEDS: Multivitamin Vitamin B Complex (Nephro-Vite) Tab PO SCH ×2 (09:18)
[2018-05-26] MEDS: Pantoprazole 40 mg EC Tab PO SCH (09:18)
--- NOTE | 2018-05-26 11:00 | CP.PCM.PN ---
Subjective - Date & Time of Evaluation Date of Evaluation: 05/26/18 Time of Evaluation: 10:57 - Subjective Subjective: Seen at dialysis to UF 750ml s/p 1 unit prbcs blood transfusion will add ESAs check iron stores s/p left av fistula creation- has bruit cannot converse- patient with dementia Objective - Vital Signs/Intake and Output Vital Signs (last 24 hours): Temp Pulse Resp BP Pulse Ox 97.9 F 86 16 111/43 L 100 05/26/18 09:40 05/26/18 09:40 05/26/18 09:40 05/26/18 10:20 05/26/18 08:50 - Medications Medications: Current Medications Amlodipine Besylate (Norvasc) 10 mg PO DAILY [facility] Last Admin: 05/25/18 11:13 Dose: Not Given Apixaban (Eliquis) 2.5 mg PO BID [facility] Last Admin: 05/26/18 09:18 Dose: Not Given Epoetin Nabil (Procrit) 10,000 unit IV TTS [facility] Famotidine (Pepcid) 20 mg PO DAILY [facility] Last Admin: 05/26/18 09:18 Dose: Not Given Ferrous Sulfate (Feosol) 325 mg PO DAILY [facility] Last Admin: 05/26/18 09:18 Dose: Not Given Hydralazine HCl (Apresoline) 50 mg PO Q8 [facility] Last Admin: 05/26/18 06:30 Dose: 50 mg Metoprolol Tartrate (Lopressor) 50 mg PO BID [facility] Last Admin: 05/25/18 18:14 Dose: 50 mg Mirtazapine (Remeron) 15 mg PO HS [facility] Last Admin: 05/25/18 21:54 Dose: 15 mg Oxycodone/Acetaminophen (Percocet 5/325 Mg Tab) 1 tab PO Q6H PRN PRN Reason: Pain, moderate (4-7) Stop: 05/28/18 14:22 Pantoprazole Sodium (Protonix Ec Tab) 40 mg PO DAILY [facility] Last Admin: 05/26/18 09:18 Dose: Not Given Rosuvastatin Calcium (Crestor) 40 mg PO HS [facility] Last Admin: 05/25/18 21:53 Dose: 40 mg Vitamin B Complex/Vit C/Folic Acid (Nephro-Waldo) 1 tab PO DAILY [facility] Last Admin: 05/26/18 09:18 Dose: Not Given Vitamin B Complex/Vit C/Folic Acid (Nephro-Waldo) 1 tab PO DAILY [facility] Last Admin: 05/26/18 09:18 Dose: Not Given - Labs Labs: 05/25/18 07:28 05/25/18 07:28 PT 12.0 SECONDS (9.7-12.2) 05/25/18 07:28 INR 1.1 05/25/18 07:28 APTT 33 SECONDS (21-34) 05/25/18 07:28 - Constitutional Appears: No Acute Distress, Confused, Cachectic, Chronically Ill - Head Exam Head Exam: ATRAUMATIC, NORMAL INSPECTION - Eye Exam Eye Exam: EOMI, Normal appearance - Neck Exam Neck Exam: Normal Inspection. absent: Tenderness - Respiratory Exam Respiratory Exam: Clear to Ausculation Bilateral, NORMAL BREATHING PATTERN - Cardiovascular Exam Cardiovascular Exam: REGULAR RHYTHM, +S1 - GI/Abdominal Exam GI & Abdominal Exam: Soft. absent: Tenderness - Extremities Exam Extremities Exam: Normal Inspection. absent: Tenderness - Neurological Exam Neurological Exam: Altered - Skin Skin Exam: Dry, Warm Assessment and Plan (1) Dementia Status: Acute (2) Anemia Status: Acute (3) CAD (coronary artery disease) Status: Acute (4) ESRD (end stage renal disease) Status: Acute - Assessment and Plan (Free Text) Plan: Add EPO check iron stores monitor AV access maturation dialysis TTS
[2018-05-26] MEDS ORDERED: Epoetin Alfa 10,000 unit/ml Dialysis IV SCH (12:30)
--- NOTE | 2018-05-26 13:26 | CP.PCM.PN ---
Subjective - Date & Time of Evaluation Date of Evaluation: 05/26/18 Time of Evaluation: 13:24 - Subjective Subjective: CONDITION STABLE. AV SHUNT DONE LT ELBOW. CRF. ANEMIA. Objective - Vital Signs/Intake and Output Vital Signs (last 24 hours): Temp Pulse Resp BP Pulse Ox 97.9 F 90 16 116/50 L 100 05/26/18 09:40 05/26/18 12:50 05/26/18 12:50 05/26/18 12:50 05/26/18 12:50 - Medications Medications: Current Medications Amlodipine Besylate (Norvasc) 10 mg PO DAILY [facility] Last Admin: 05/26/18 12:57 Dose: Not Given Apixaban (Eliquis) 2.5 mg PO BID [facility] Last Admin: 05/26/18 09:18 Dose: Not Given Epoetin Nabil (Procrit) 10,000 unit IV TTS [facility] Last Admin: 05/26/18 12:34 Dose: 10,000 unit Famotidine (Pepcid) 20 mg PO DAILY [facility] Last Admin: 05/26/18 09:18 Dose: Not Given Ferrous Sulfate (Feosol) 325 mg PO DAILY [facility] Last Admin: 05/26/18 09:18 Dose: Not Given Heparin Sodium (Porcine) (Heparin) 4,100 units IVP TTS [facility] Last Admin: 05/26/18 12:35 Dose: 4,100 units Hydralazine HCl (Apresoline) 50 mg PO Q8 [facility] Last Admin: 05/26/18 06:30 Dose: 50 mg Metoprolol Tartrate (Lopressor) 50 mg PO BID [facility] Last Admin: 05/26/18 12:57 Dose: Not Given Mirtazapine (Remeron) 15 mg PO [facility] Last Admin: 05/25/18 21:54 Dose: 15 mg Oxycodone/Acetaminophen (Percocet 5/325 Mg Tab) 1 tab PO Q6H PRN PRN Reason: Pain, moderate (4-7) Stop: 05/28/18 14:22 Pantoprazole Sodium (Protonix Ec Tab) 40 mg PO DAILY [facility] Last Admin: 05/26/18 09:18 Dose: Not Given Rosuvastatin Calcium (Crestor) 40 mg PO [facility] Last Admin: 05/25/18 21:53 Dose: 40 mg Vitamin B Complex/Vit C/Folic Acid (Nephro-Waldo) 1 tab PO DAILY [facility] Last Admin: 05/26/18 09:18 Dose: Not Given Vitamin B Complex/Vit C/Folic Acid (Nephro-Waldo) 1 tab PO DAILY [facility] Last Admin: 05/26/18 09:18 Dose: Not Given - Labs Labs: 05/25/18 07:28 05/25/18 07:28 PT 12.0 SECONDS (9.7-12.2) 05/25/18 07:28 INR 1.1 05/25/18 07:28 APTT 33 SECONDS (21-34) 05/25/18 07:28 - Constitutional Appears: No Acute Distress, Chronically Ill - Eye Exam Eye Exam: PERRL - ENT Exam ENT Exam: Mucous Membranes Moist - Respiratory Exam Respiratory Exam: Clear to Ausculation Bilateral, NORMAL BREATHING PATTERN - Cardiovascular Exam Cardiovascular Exam: REGULAR RHYTHM, +S1, +S2 - GI/Abdominal Exam GI & Abdominal Exam: Soft, Normal Bowel Sounds - Extremities Exam Extremities Exam: Full ROM, Normal Capillary Refill, Normal Inspection. absent: Joint Swelling, Pedal Edema - Back Exam Back Exam: NORMAL INSPECTION - Neurological Exam Neurological Exam: Alert, Awake, CN II-XII Intact, Normal Gait, Oriented x3 - Psychiatric Exam Psychiatric exam: Normal Affect, Normal Mood Assessment and Plan - Assessment and Plan (Free Text) Assessment: S/P AV SHUNT. Plan: POSSIBLE D/C TO [facility].
--- NOTE | 2018-05-26 13:48 | CP.PCM.PN ---
Subjective - Date & Time of Evaluation Date of Evaluation: 05/26/18 Time of Evaluation: 13:45 - Subjective Subjective: Resting in bed after dialysis. Objective - Vital Signs/Intake and Output Vital Signs (last 24 hours): Temp Pulse Resp BP Pulse Ox 97.9 F 90 16 116/50 L 100 05/26/18 09:40 05/26/18 12:50 05/26/18 12:50 05/26/18 12:50 05/26/18 12:50 - Medications Medications: Current Medications Amlodipine Besylate (Norvasc) 10 mg PO DAILY [facility] Last Admin: 05/26/18 12:57 Dose: Not Given Apixaban (Eliquis) 2.5 mg PO BID [facility] Last Admin: 05/26/18 09:18 Dose: Not Given Epoetin Nabil (Procrit) 10,000 unit IV TTS [facility] Last Admin: 05/26/18 12:34 Dose: 10,000 unit Famotidine (Pepcid) 20 mg PO DAILY [facility] Last Admin: 05/26/18 09:18 Dose: Not Given Ferrous Sulfate (Feosol) 325 mg PO DAILY [facility] Last Admin: 05/26/18 09:18 Dose: Not Given Heparin Sodium (Porcine) (Heparin) 4,100 units IVP TTS [facility] Last Admin: 05/26/18 12:35 Dose: 4,100 units Hydralazine HCl (Apresoline) 50 mg PO Q8 [facility] Last Admin: 05/26/18 06:30 Dose: 50 mg Metoprolol Tartrate (Lopressor) 50 mg PO BID [facility] Last Admin: 05/26/18 12:57 Dose: Not Given Mirtazapine (Remeron) 15 mg PO HS [facility] Last Admin: 05/25/18 21:54 Dose: 15 mg Oxycodone/Acetaminophen (Percocet 5/325 Mg Tab) 1 tab PO Q6H PRN PRN Reason: Pain, moderate (4-7) Stop: 05/28/18 14:22 Pantoprazole Sodium (Protonix Ec Tab) 40 mg PO DAILY [facility] Last Admin: 05/26/18 09:18 Dose: Not Given Rosuvastatin Calcium (Crestor) 40 mg PO HS [facility] Last Admin: 05/25/18 21:53 Dose: 40 mg Vitamin B Complex/Vit C/Folic Acid (Nephro-Waldo) 1 tab PO DAILY [facility] Last Admin: 05/26/18 09:18 Dose: Not Given Vitamin B Complex/Vit C/Folic Acid (Nephro-Waldo) 1 tab PO DAILY [facility] Last Admin: 05/26/18 09:18 Dose: Not Given - Labs Labs: 05/25/18 07:28 05/25/18 07:28 PT 12.0 SECONDS (9.7-12.2) 05/25/18 07:28 INR 1.1 05/25/18 07:28 APTT 33 SECONDS (21-34) 05/25/18 07:28 - Head Exam Head Exam: NORMOCEPHALIC - Neck Exam Neck Exam: Normal Inspection - Respiratory Exam Respiratory Exam: NORMAL BREATHING PATTERN - Cardiovascular Exam Cardiovascular Exam: Irregular Rhythm - Extremities Exam Extremities Exam: Normal Inspection Assessment and Plan (1) CAD (coronary artery disease) Assessment & Plan: CAD is stable. Discussed with son in detail about prognosis and travel to [place]. Risk/benefits explained. He understand. Continue current cardiac care. Status: Acute (2) Anemia Assessment & Plan: Most likely secondary Nutrition and ESRD are the causes. Keep H&H>8/24. Status: Acute (3) ESRD (end stage renal disease) Assessment & Plan: Keep fluid restriction and keep K.4 and Mg>2. Status: Acute
--- NOTE | 2018-05-26 15:08 | CP.PCM.PN ---
Subjective - Date & Time of Evaluation Date of Evaluation: 05/26/18 Time of Evaluation: 15:08 Objective - Vital Signs/Intake and Output Vital Signs (last 24 hours): Temp Pulse Resp BP Pulse Ox 97.9 F 90 16 116/50 L 100 05/26/18 09:40 05/26/18 12:50 05/26/18 12:50 05/26/18 12:50 05/26/18 14:00 - Medications Medications: Current Medications Amlodipine Besylate (Norvasc) 10 mg PO DAILY [facility] Last Admin: 05/26/18 12:57 Dose: Not Given Apixaban (Eliquis) 2.5 mg PO BID [facility] Last Admin: 05/26/18 09:18 Dose: Not Given Epoetin Nabil (Procrit) 10,000 unit IV TTS [facility] Last Admin: 05/26/18 12:34 Dose: 10,000 unit Famotidine (Pepcid) 20 mg PO DAILY [facility] Last Admin: 05/26/18 09:18 Dose: Not Given Ferrous Sulfate (Feosol) 325 mg PO DAILY [facility] Last Admin: 05/26/18 09:18 Dose: Not Given Heparin Sodium (Porcine) (Heparin) 4,100 units IVP TTS [facility] Last Admin: 05/26/18 12:35 Dose: 4,100 units Hydralazine HCl (Apresoline) 50 mg PO Q8 [facility] Last Admin: 05/26/18 14:10 Dose: Not Given Metoprolol Tartrate (Lopressor) 50 mg PO BID [facility] Last Admin: 05/26/18 12:57 Dose: Not Given Mirtazapine (Remeron) 15 mg PO HS [facility] Last Admin: 05/25/18 21:54 Dose: 15 mg Oxycodone/Acetaminophen (Percocet 5/325 Mg Tab) 1 tab PO Q6H PRN PRN Reason: Pain, moderate (4-7) Stop: 05/28/18 14:22 Pantoprazole Sodium (Protonix Ec Tab) 40 mg PO DAILY [facility] Last Admin: 05/26/18 09:18 Dose: Not Given Rosuvastatin Calcium (Crestor) 40 mg PO HS [facility] Last Admin: 05/25/18 21:53 Dose: 40 mg Vitamin B Complex/Vit C/Folic Acid (Nephro-Waldo) 1 tab PO DAILY [facility] Last Admin: 05/26/18 09:18 Dose: Not Given Vitamin B Complex/Vit C/Folic Acid (Nephro-Waldo) 1 tab PO DAILY [facility] Last Admin: 05/26/18 09:18 Dose: Not Given - Labs Labs: 05/25/18 07:28 05/25/18 07:28 PT 12.0 SECONDS (9.7-12.2) 05/25/18 07:28 INR 1.1 05/25/18 07:28 APTT 33 SECONDS (21-34) 05/25/18 07:28 Assessment and Plan - Assessment and Plan (Free Text) Assessment: PLACE UNDER THE SERVICE OF DR Zuleika ALCANTARA AT [facility] ----CALL FOR ADMITTING ORDER FOLLOW UP WITH DR OLSNE IN HIS OFFICE IN 10 DAYS ------CALL FOR APPOINTMENT FOLLOW UP WITH DR DEL CID [facility] MEDICATION PER [facility] ACTIVITY TOLERATED AND PT PER FACILITY PROTOCOL HEMODIALYSIS SCHEDULE CALL DR Anthony ALCANTARA FOR FURTHER ORDER
[2018-05-26 15:57] VITALS: RESP 18; TEMP 98.1
[2018-05-26 17:51] VITALS: BP 163/63; PULSE 101
== END 2018-05-26 19:41 ==
LOC: C.ER 15:02 → C.9E 17:01 → C.5S 05-24 06:48
PROVIDERS: ADMIT Internal Medicine; ATTEND Internal Medicine
DX: I12.0 Hypertensive chronic kidney disease with stage 5 chronic kidney disease or end stage renal disease (principal); I25.10 Atherosclerotic heart disease of native coronary artery without angina pectoris; N18.6 End stage renal disease; Z79.82 Long term (current) use of aspirin; Z95.5 Presence of coronary angioplasty implant and graft; Z99.2 Dependence on renal dialysis; D63.1 Anemia in chronic kidney disease; G20 Parkinson's disease; F02.80 Dementia in other diseases classified elsewhere, unspecified severity, without behavioral disturbance, psychotic disturbance, mood disturbance, and anxiety
CPT/HCPCS: 36415; 36430; 36821; 71045; 80048; 80053; 82728; 83735; 84100; 85025; 85610; 85730; 86850; 86900; 86920; 93005; 96372; 99285; G0257; G0378; J0690; J1644; J2370; J2704; J3010; J7030; P9051; Q4081